=== PATIENT | female | born 1955 | race Caucasian/White ===

== ENCOUNTER 2017-02-12 10:39 | Day surgery (SDC) | payer OTHER ==
[~2017-02-12] VITALS: Ht 160 cm; Wt 95.5 kg
[~2017-02-12 10:39] MED LIST: ASTELIN NASAL S34 ML IH; ASTELIN NASAL S34 ML NAS; BENADRYL25 M2 PO; CAPOTEN 25MG25 MG PO; CAPTOPRIL PO; COLACE 100100 MG/CAP PO; FLOVENT 110MCG7.9 GM IH; GAS RELIEF80 MG PO; IMODIUM 2MG CAPS2 MG PO; LEVAQUIN 5500 MG/TA1 PO; MUCINEX 60600 MG/TA1 PO; NASONEX SPRAY17 GM NS; PRILOSEC 20MG20 MG PO; PROAIR HFA0.09 MG/AC IH; RT ALBUTER2.5 MG/0.5 IH; SUDAFED PE PO; TUMS E-X750 MG PO; TYLENOL 500MG500 MG PO; ULTRAM 50MG TAB50 MG PO; VITAMIN D1000 IU PO; VITAMIN D32000 I1 PO; ZYRTEC 10MG10 MG PO; [UNRECOGNIZED DRUG - OTHER] PO
[2017-02-12] MEDS ORDERED: DULCOLAX TAB5 MG PO (11:20)
[2017-02-12] MEDS ORDERED: ULTRAM 50MG TAB50 MG PO (11:24)
[2017-02-12] MEDS ORDERED: PRADAXA 150MG150 MG PO (11:25)
[2017-02-12] MEDS ORDERED: RT ADVAIR 228 DISKUS IH (11:33)
[2017-02-12] MEDS ORDERED: BLUE TOP (11:35)
[2017-02-12 11:37] VITALS: BP 143/89; PULSE 72; TEMP 97.7
[2017-02-12 13:25] VITALS: BP 132/91; PULSE 66; TEMP 97.7
[2017-02-12 13:40] VITALS: BP 135/85; PULSE 64
[2017-02-12 13:55] VITALS: BP 142/89; PULSE 67
== END 2017-02-12 14:37 | disposition home or self-care (01) ==
LOC: SDCO 10:39
DX: K57.30 Diverticulosis of large intestine without perforation or abscess without bleeding (principal); K64.0 First degree hemorrhoids; K58.2 Mixed irritable bowel syndrome; K76.0 Fatty (change of) liver, not elsewhere classified; K59.09 Other constipation; E66.9 Obesity, unspecified; I10 Essential (primary) hypertension; J45.909 Unspecified asthma, uncomplicated; G47.33 Obstructive sleep apnea (adult) (pediatric); K21.9 Gastro-esophageal reflux disease without esophagitis; M19.90 Unspecified osteoarthritis, unspecified site; Z68.37 Body mass index [BMI] 37.0-37.9, adult; Z90.710 Acquired absence of both cervix and uterus; Z96.651 Presence of right artificial knee joint; Z79.01 Long term (current) use of anticoagulants; Z80.0 Family history of malignant neoplasm of digestive organs
CPT/HCPCS: OP; J2704; J7030

== ENCOUNTER 2017-07-24 07:31 | Day surgery (SDC) | payer OTHER ==
[~2017-07-24] VITALS: Ht 160 cm; Wt 93.7 kg
[~2017-07-24 07:31] MED LIST changes: +BLUE TOP; +DULCOLAX TAB5 MG PO; +PRADAXA 150MG150 MG PO; +RT ADVAIR 228 DISKUS IH
[2017-07-24] MEDS ORDERED: MIRALAX238G PO (08:11)
[2017-07-24 08:32] VITALS: BP 109/82; PULSE 105; TEMP 97
[2017-07-24 11:55] VITALS: BP 109/68; PULSE 69; TEMP 97.5
[2017-07-24 12:10] VITALS: BP 133/86; PULSE 78
[2017-07-24 12:25] VITALS: BP 134/71; PULSE 90
[2017-07-24 12:40] VITALS: BP 120/53; PULSE 74
[2017-07-24 14:48] VITALS: BP 109/68; PULSE 69; TEMP 98.1
== END 2017-07-24 13:10 | disposition home or self-care (01) ==
LOC: SDCO 07:31
DX: N20.0 Calculus of kidney (principal); M19.90 Unspecified osteoarthritis, unspecified site; K21.9 Gastro-esophageal reflux disease without esophagitis; G47.30 Sleep apnea, unspecified; N39.41 Urge incontinence; N32.81 Overactive bladder; Z79.01 Long term (current) use of anticoagulants; Z90.49 Acquired absence of other specified parts of digestive tract; Z90.710 Acquired absence of both cervix and uterus; Z96.659 Presence of unspecified artificial knee joint; Z88.6 Allergy status to analgesic agent; Z88.8 Allergy status to other drugs, medicaments and biological substances; Z88.1 Allergy status to other antibiotic agents; Z88.5 Allergy status to narcotic agent; Z88.2 Allergy status to sulfonamides; Z88.0 Allergy status to penicillin; Z88.3 Allergy status to other anti-infective agents; Z87.448 Personal history of other diseases of urinary system; Z80.3 Family history of malignant neoplasm of breast; Z86.718 Personal history of other venous thrombosis and embolism; Z80.0 Family history of malignant neoplasm of digestive organs; Z83.3 Family history of diabetes mellitus; Z82.49 Family history of ischemic heart disease and other diseases of the circulatory system
CPT/HCPCS: C1769; C2617; J0690; J1100; J2370; J2405; J2704; J3010; J7120; Q9967

== ENCOUNTER 2018-10-23 17:21 | Observation (INO) | payer OTHER ==
[~2018-10-23] VITALS: Ht 160 cm; Wt 100.5 kg
[~2018-10-23 17:21] MED LIST changes: +MIRALAX238G PO
[2018-10-23 19:46] VITALS: BP 114/54; PULSE 69; TEMP 98.1
[2018-10-23 20:42] LABS: INR 1.1 (0.8-3.0); MAGNESIUM 1.8 mg/dL (1.6-2.3); PROTHROMBIN TIME 12.9 SECONDS (9.7-12.8)
[2018-10-23 20:58] LABS: TROPONIN-I < 0.012 ng/mL (0.000-0.035)
[2018-10-24] VITALS (10 sets, daily range): BP systolic 93–160; BP diastolic 47–74; PULSE 67–109; TEMP 98–98.3
--- NOTE | 2018-10-24 01:21 | NUR ---
PATIENT REQUESTING TO USE THE BATHROOM. REQUESTING TO GET OUT OF BED. EXPLAINED TO PATIENT THAT WITH RIGHT SIDED WEAKNESS AND MUSCLE TWITCH IT WOULD NOT BE SAFE SHE COULD FALL. PATIENT AGREED TO USE BED [place] RELUCTANTLY. OBSERVED TO PUSH BUTTOCKS OFF BED WITH BILATERAL LEGS AND ARMS. OBSERVED TO PLACE PAD ON UNDERWAER WITH RIGHT HAND. 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 SPEECH CLEAR. SYMETRICAL FACIAL MOVEMENT. WHEN ASKED DATE OF PATIENT STATES "I HAVE NO IDEA I CAN'T REMEMBER".
[2018-10-24 01:26] LABS: MUCOUS Present /lpf; PH 6 (5-8); SQUAMOUS EPITHELIAL 0-2 /hpf; URINE APPEARANCE Clear; URINE BACTERIA Rare /hpf; URINE BILIRUBIN Negative (NEGATIVE); URINE BLOOD Negative (NEGATIVE); URINE COLOR Straw; URINE GLUCOSE Negative (NEGATIVE); URINE KETONE Negative (NEGATIVE); URINE LEUKOCYTE ESTERASE Trace (NEGATIVE); URINE NITRATE Negative (NEGATIVE); URINE PROTEIN(semi-quant) Negative (NEGATIVE); URINE RBC 0-2 /hpf; URINE UROBILINOGEN Negative (NEGATIVE)
[2018-10-24 01:27] LABS: COLLECTION METHOD CLEAN CATCH
[2018-10-24 01:36] LABS: TRICYCLIC ANTIDEPRESS URINE NEGATIVE
--- NOTE | 2018-10-24 02:16 | NUR ---
NIH STROKE SCALE SCORE ZERO AT THIS TIME. NEUROS AT BASELINE WITH ONLY ABNORMALITY IS BLINDNEES OF LEFT EYE. STRONG GRASP IN BILATERAL HANDS ON COMMAND. LIFTS BILATRAL UPPER/LOWER EXTREMITIES OFF BED AND HOLDS ON COMMAND. SPEECH WNL. DENIES LOSS OF SENSATION. DENIES C/O OF PAIN OR DISCOMFORT.
[2018-10-24 06:16] LABS: BASO % 0.5 % (0.0-2.0); EOS # 0.1 (0.0-0.7); EOS % 1.5 % (0-4.0); GRAN # 2.2 (1.4-6.5); HEMATOCRIT 28.6 % (37.0-47.0); HEMOGLOBIN 8.8 g/dl (12.5-16.0); LYMPH # 1.4 (1.2-3.4); LYMPH % 33.9 % (20.0-51.0); MEAN CELL VOLUME 78 fl (80.0-100.0); MEAN CORPUSCULAR HEMOGLOBIN 24 pg (27.0-31.0); MEAN CORPUSCULAR HGB CONC 31 g/dl (33.0-37.0); MEAN PLATELET VOLUME 11.6 fl (7.4-10.4); MONO # 0.4 (0.1-0.6); MONO % 9.8 % (1.7-9.3); PLATELET COUNT 143 K/mm3 (130-400); RED BLOOD COUNT 3.68 M/mm3 (4.10-5.30); REDCELL DISTRIBUTION WIDTH-CV 18.4 % (11.5-14.5)
--- NOTE | 2018-10-24 06:28 | NUR ---
PATIENT LAYING AWAKE IN BED WITH EYES OPEN. PRESENTS WITH RELAXED BODY POSTURE AND EVEN NON LABORED RESPIRATIONS. ATTITUDE CALM AND QUIET. PLEASANT. COOPERATIVE. NEUROS WNL. SPEECH WNL, STRONG GRASP IN HANDS BILATERALLY. PATIENT OBSERVED TO GET UP TO BATHROOM WITH STAND BY ASISST AT 0600. GAIT STEADY. AMBULATED WITHOUT ASSISTANCE. NO MUSCLE TWITCHING OBSERVED OR REPORTED.
[2018-10-24 06:29] LABS: ALANINE AMINOTRANSFERASE 23 U/L (9-52); ALBUMIN 3.3 gm/dL (3.5-5.0); ALKALINE PHOSPHATASE 81 U/L (50-136); ANION GAP 8 mmol/L (7-16); AST,SGOT 26 U/L (15-37); BILIRUBIN,TOTAL 1.1 mg/dL (0.0-1.0); BLOOD UREA NITROGEN 4 mg/dL (7-17); CALCIUM 8.2 mg/dL (8.4-10.2); CARBON DIOXIDE 22 mmol/L (22-30); CHLORIDE 113 mmol/L (98-107); CHOLESTEROL 125 mg/dL (120-200); CREATININE, serum 0.67 (0.52-1.25); GLUCOSE 96 mg/dL (74-106); HDL CHOLESTEROL 41 mg/dL; SODIUM 143 mmol/L (137-145); TOTAL PROTEIN 5.7 gm/dL (6.4-8.2)
[2018-10-24 06:39] LABS: TROPONIN-I < 0.012 ng/mL (0.000-0.035)
[2018-10-24 07:44] LABS: LDL CHOLESTEROL 68 mg/dL; TRIGLYCERIDE 79 mg/dL
--- NOTE | 2018-10-24 11:35 | NUR ---
Pt awake and alert upon entry, no current C/O pain, shift assessments complete, left Pt call light in reach, bed in lowest position.
--- NOTE | 2018-10-24 13:48 | NUR ---
DEVANTE met with the patient to discuss discharge plan. The patient lives in [place] with her , Winston. She states that she has two daughters, Yamileth and Santa, that live in [place] and a son that lives in [place]. She reports independence with ADLs and has a cane and walker. The patient's PCP is Dr. Eric Kerr and she receives her medications at [facility]. She reports no difficulties obtaining her meds. The patient does not have advanced directives, but she was interested in obtaining a form for DPOA-HC. DEVANTE provided. She states that she would want to designate both her daughters. The patient plans to return home upon discharge. She states that she will need transportation back home, due to her and daughters not being able to drive long distances. She states that she does not have any friend support that could do it and she states she would not be able to afford a taxi. DEVANTE will need to continue to follow to help with transportation.
--- NOTE | 2018-10-24 16:35 | NUR ---
The patient is to discharge back home today, 10/24. provided a taxi voucher to the patient. The patient's RN, Dwayne, plans to contact [facility] when discharge paperwork is done. No additional needs at this time.
--- NOTE | 2018-10-24 18:40 | NUR ---
Pt discharged to home, escorted to ED entrance, left via taxi.
== END 2018-10-24 18:42 | disposition home or self-care (01) ==
LOC: MEDICAL 18:12
PROVIDERS: Nurse Practitioner Family; ADMIT Student in an Organized Health Care Education/Training Program
DX: R55 Syncope and collapse (principal); I10 Essential (primary) hypertension; I25.10 Atherosclerotic heart disease of native coronary artery without angina pectoris; K58.9 Irritable bowel syndrome, unspecified; J45.909 Unspecified asthma, uncomplicated; I08.1 Rheumatic disorders of both mitral and tricuspid valves; Z86.718 Personal history of other venous thrombosis and embolism; Z79.01 Long term (current) use of anticoagulants; Z90.49 Acquired absence of other specified parts of digestive tract; Z90.710 Acquired absence of both cervix and uterus; Z96.651 Presence of right artificial knee joint; Z87.891 Personal history of nicotine dependence; Z82.49 Family history of ischemic heart disease and other diseases of the circulatory system; Z82.5 Family history of asthma and other chronic lower respiratory diseases; Z88.0 Allergy status to penicillin; Z88.2 Allergy status to sulfonamides; Z88.6 Allergy status to analgesic agent; Z88.5 Allergy status to narcotic agent; Z88.3 Allergy status to other anti-infective agents; Z91.040 Latex allergy status; Z88.1 Allergy status to other antibiotic agents; Z91.048 Other nonmedicinal substance allergy status
CPT/HCPCS: A9500; G0378; J2785; J7030